=== PATIENT | female | born 1970 | race Two or more races ===

== ENCOUNTER 2023-06-11 13:20 | Emergency (ER) | payer BC ==
[~2023-06-11] VITALS: Ht 162.6 cm; Wt 90.7 kg
[2023-06-11] MEDS ORDERED: CYCLOBENZAPRINE 10 MG TABLET ONE (14:49)
[2023-06-11] MEDS ORDERED: ACETAMINOPHEN ES 500 MG TABLET ONE (14:49)
[2023-06-11] MEDS ORDERED: CYCLOBENZAPRINE 10 MG TABLET PO ONE (15:00)
[2023-06-11] MEDS ORDERED: ACETAMINOPHEN ES 500 MG TABLET PO ONE (15:00)
[2023-06-11] MEDS ORDERED: CYCL5TAB PO (15:58)
[2023-06-11 16:14] VITALS: BP 124/83; TEMP 98.4; O2SAT 98
== END 2023-06-11 16:14 | disposition home or self-care (01) ==
LOC: ER 13:24
DX: S09.8XXA Other specified injuries of head, initial encounter (principal); V89.2XXA Person injured in unspecified motor-vehicle accident, traffic, initial encounter; Y93.89 Activity, other specified; Y92.89 Other specified places as the place of occurrence of the external cause; Y99.8 Other external cause status
CPT/HCPCS: 70450-TC; 71045-TC; 72125-TC